=== PATIENT | female | born 1990 ===

== ENCOUNTER 2024-03-15 05:00 | Day surgery (SDC) | payer OTHER ==
[~2024-03-15 05:00] MED LIST: Sodium Chloride 0.9% 10 ML Syringe FLUSH PRN; Sodium Chloride 0.9% 10 ML Syringe FLUSH SCH
[2024-03-15] MEDS: Lactated Ringers 1,000 ML IV SCH (06:15)
[2024-03-15] MEDS ORDERED: Propofol 200 MG/20 ML SDV ONE ×2 (06:55→07:13)
[2024-03-15] MEDS ORDERED: Midazolam 1 MG/ML 2 ML SDV ONE (06:55)
[2024-03-15] MEDS: Bupivacaine 0.25% 10 ML SDV ONE (07:12)
[2024-03-15] MEDS: Lidocaine 1% 10 ML MDV ONE (07:12)
== END 2024-03-15 08:15 | disposition home or self-care (01) ==
LOC: JD.SDS 05:00
PROVIDERS: ATTEND Orthopaedic Surgery
DX: G56.11 Other lesions of median nerve, right upper limb (principal); G56.01 Carpal tunnel syndrome, right upper limb; J45.909 Unspecified asthma, uncomplicated; Z79.82 Long term (current) use of aspirin; Z79.899 Other long term (current) drug therapy
CPT/HCPCS: 64721; J0665; J2250; J2704; J7120; 01810; J3490